=== PATIENT | female | born 1940 | race Caucasian/White ===

== ENCOUNTER 2016-12-09 22:13 | Observation (INO) ==
[2016-12-09] MEDS ORDERED: SALINE FLUSH 10ml SYRINGE IVF PRN (22:42)
--- NOTE | 2016-12-09 23:11 | Emergency Department Report ---
General Adult HPI - General Chief complaint: Medical Emergency Stated complaint: poss overdose of medication Time Seen by Provider: 12/09/16 22:20 Source: patient Mode of arrival: ambulatory Limitations: no limitations - History of Present Illness HPI narrative: 76-year-old female presents to the emergency department with a chief complaint of feeling slightly foggy and elevated blood pressure. Patient states that she has taken her blood pressure several times at home this evening is does not remember the exact numbers but notes that it has been elevated. Patient was started on Norvasc, lisinopril, metoprolol, and a statin 2 weeks ago after a heart catheterization at [facility]. Patient states that she feels slightly nauseous as well. Patient denies any true pain or discomfort. Patient states she was at home when her symptoms began. Symptoms have been persistent in nature since onset. She was at home when her symptoms began. No other complaints or associated symptoms. She does not note any other complaints or associated symptoms. Patient denies ingesting any more medication than as directed by the labels on the prescription bottles. - Related Data Home Medications Medication Instructions Recorded Confirmed Amlodipine [Norvasc] 5 mg PO BID 11/23/16 12/09/16 Atorvastatin [Lipitor] 1 tab PO HS 12/09/16 12/09/16 Lisinopril [Prinivil] 10 mg PO DAILY 12/09/16 12/09/16 Metoprolol Tartrate [Lopressor] 25 mg PO BIDWM 12/09/16 12/09/16 Allergies Allergy/AdvReac Type Severity Reaction Status Date / Time Sulfa (Sulfonamide Allergy Unknown Verified 12/09/16 22:39 Antibiotics) Penicillins Allergy Verified 12/09/16 22:39 Review of Systems Constitutional: Denies: fever, chills Eyes: Denies: eye pain, vision change ENT: Denies: ear pain, throat pain Cardiovascular: Denies: chest pain, palpitations Respiratory: Denies: cough, dyspnea Gastrointestinal: Reports: nausea. Denies: abdominal pain, vomiting, diarrhea Genitourinary: Denies: urgency, dysuria Musculoskeletal: Denies: back pain, arthralgia Integumentary: Denies: erythema, rash Neurological: Denies: headache, weakness, numbness, paresthesias Psychiatric: Denies: anxiety, depression Endocrine: Denies: fatigue, heat or cold intolerance Hematological/Lymphatic: Denies: easy bleeding, easy bruising Allergic/Immunologic: Denies: facial swelling, urticaria PFSH Patient Stated Medical History Hypertension Yes Gastroesophageal Reflux Yes Disease Osteoarthritis Yes Surgical History: Cardiac Catheterization Family History: Reviewed and Non-contributory. - Social History Smoking status: Never smoker Substance use type: does not use Alcohol intake frequency: does not drink Physical Exam - Limitations Limitations: no limitations - General General appearance: alert, in no apparent distress - Normal Exams: Head:: Normocephalic without trauma Eyes:: Pupils are PERRLA w/ EOMI, No scleral icterus, irritation, or foreign bodies noted ENMT:: No facial trauma, nasal exudates, pharyngeal erythema, or exudates are noted Dental: No fractured, loose, or missing teeth noted Neck:: Full range of motion, without adenopathy, JVD, bruits or thyromegaly Chest/Respirations:: Clear all white, with good airflow, and symmetry bilaterally Cardiovascular:: Regular rate and rhythm, without murmur or gallop, Pulses 2+ all extremities, capillary refill, <2 seconds all extremities Abdomen:: Bowel sounds positive, soft, non-tender, non-distended, no hepatosplenomegaly, masses or bruits noted Lymphatic:: No lymphadenopathy, or lymphedema noted Musculoskeletal:: No tenderness, or deformity noted, good range of motion, all extremities Integumentary:: No rashes, hives, or bruising noted, hair and nails, without abnormality Neurological:: Patient is alert, and oriented, cranial nerves, motor/sensory/ cerebellar, exams w/o gross deficits, to observation Psychiatric:: Patient exhibits, appropriate attention, emotion and affect Course Vital Signs Temperature 98.3 F 12/09/16 22:13 Pulse Rate 87 12/09/16 22:13 Respiratory Rate 20 12/09/16 22:13 Blood Pressure 224/94 H 12/09/16 22:13 Pulse Oximetry 96 12/09/16 22:13 Temperature 98.3 F 12/09/16 22:13 Pulse Rate 78 12/10/16 00:33 Respiratory Rate 18 12/09/16 22:40 Blood Pressure 160/77 H 12/10/16 00:15 Pulse Oximetry 93 12/10/16 00:33 Medical Decision Making - [facility] Narrative Medical decision making narrative: Labs / imaging were discussed in detail with the patient and questions are answered. Without intervention patient's blood pressure comes down to 150/71 in the emergency department. Patient is not comfortable with being discharged home. Patient declines to be discharged home and is requesting to be observed in the hospital. Patient is discussed with Dr. Crabtree from telemedicine and will be admitted to the hospital in observation status. Patient is admitted to the hospital in improved condition to the service of Dr. Gibson. No further orders from accepting physician who is in agreement with the current plan of management. - Differential Diagnosis hypertension, uncontrolled hypertension, medication reaction, metabolic pro - Lab Data Result diagrams: 12/09/16 22:48 12/09/16 22:48 Lab Results 12/09/16 12/09/16 Range/Units 22:48 22:48 WBC 7.1 (4.5-11.0) T/MM3 RBC 5.10 (4.00-5.20) M/MM3 Hgb 15.4 (12-16) GM/DL Hct 43.5 (36-46) % MCV 85.3 (80-100) UM3 MCH 30.2 (26-34) UUG MCHC 35.4 (31-37) GM/DL RDW Std Deviation 37.9 (36.9-50.2) FL Plt Count 202 (130-400) T/MM3 MPV 9.3 L (9.4-12.4) UM3 Immature Gran % (Auto) 0.3 (0.0-0.5) % Neut % (Auto) 66.3 H (33-66) % Lymph % (Auto) 24.0 (23-45) % [place] % (Auto) 6.0 (0-9.0) % Eos % (Auto) 3.1 (0-4) % Baso % (Auto) 0.3 (0-2) % Neut # (Auto) 4.7 (1.8-7.7) T/MM3 Lymph # (Auto) 1.7 (1-4.8) T/MM3 [place] # (Auto) 0.4 (0-0.8) T/MM3 Eos # (Auto) 0.2 (0-0.5) T/MM3 Baso # (Auto) 0.0 (0-0.2) T/MM3 Abs Immat Gran (auto) 0.02 (0.00-0.03) T/MM3 Turbidity < 20 (0-20) Sodium 135 (134-144) MEQ/L Potassium 3.9 (3.6-5) MEQ/L Chloride 98 (98-107) MEQ/L Carbon Dioxide 24 (22-30) MEQ/L Anion Gap 13 (5-15) MEQ/L BUN 14.0 (7-17) MG/DL Creatinine 1.0 (0.7-1.2) MG/DL GFR Calculation 54 BUN/Creatinine Ratio 14 (6-26) RATIO Glucose 131 H (65-110) MG/DL Calculated Osmolality 263 (261-280) MOSM/KG Calcium 9.5 (8.4-10.2) MG/DL Total Bilirubin 0.50 (0.20-1.30) MG/DL Icterus Index < 2 (0-7) AST 37 H (14-36) U/L ALT 48 (9-52) U/L Alkaline Phosphatase 112 (38-126) U/L Troponin I < 0.012 (0-0.12) ng/ml Total Protein 7.6 (6.3-8.2) G/DL Albumin 4.5 (3.5-5.0) G/DL Globulin 3.1 (2.4-3.6) G/DL Albumin/Globulin Ratio 1.5 (1.1-2.2) RATIO Specimen Hemolysis < 15 (0-25) - Radiology Data CXR - No acute processes. - EKG Data EKG #1 EKG results narrative: Normal Sinus Rhythm. 75 bpm. NO STEMI. Disposition Clinical Impression: Hypertension Qualifiers: Hypertension type: unspecified secondary hypertension Qualified Code(s): I15.9 - Secondary hypertension, unspecified Medication reaction Qualifiers: Encounter type: initial encounter Qualified Code(s): T88.7XXA - Unspecified adverse effect of drug or medicament, initial encounter Disposition: To [facility] Acute Care Condition: Improved Time of Disposition: 00:15 (Admit. Dr. Gibson. ) - Seen By: physician
[2016-12-10 01:44] VITALS: BMI 31.8
[2016-12-10] MEDS ORDERED: ACETAMINOPHEN 325 MG TABLET PO PRN (02:34)
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
[2016-12-10 07:46] VITALS: RESP 20; O2SAT 93
--- NOTE | 2016-12-10 08:01 | XRay Report ---
Indication: HTN PROCEDURE: XR chest 1V: Encounter: Initial Comparison: November 23, 2016 FINDINGS: The lungs are clear. There is no abnormal airspace opacity, pleural effusion or pneumothorax identified. The heart size, pulmonary vasculature and mediastinum are within normal limits. No significant skeletal abnormality is seen. IMPRESSION: No acute cardiopulmonary abnormality. .
[2016-12-10] MEDS ORDERED: POM AMLODIPINE 5 MG TABLET PO SCH (09:00)
[2016-12-10 16:19] VITALS: BP 146/78; PULSE 68; TEMP 96.6
[2016-12-10] MEDS: POM METOPROLOL TARTRATE 25mg TABLET PO SCH ×2 (16:21→17:47)
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
[2016-12-10] MEDS ORDERED: POM ATORVASTATIN 40 MG TABLET PO SCH (21:00)
== END 2016-12-10 18:58 | disposition home or self-care (01) ==
LOC: ED 22:13 → MED 22:13
PROVIDERS: ADMIT Internal Medicine; ATTEND Internal Medicine